=== PATIENT | female | born 1990 | race African-American/Black ===

== ENCOUNTER 2021-06-20 22:47 | Emergency (ER) | payer OTHER ==
[~2021-06-20] VITALS: Ht 165.1 cm; Wt 83.9 kg
[2021-06-20 23:05] VITALS: BP 121/78
--- NOTE | 2021-06-20 23:08 | NUR ---
TO LOBBY A/W BED AMBULATORY
--- NOTE | 2021-06-21 01:12 | NUR ---
PT TAKEN TO BED 11
--- NOTE | 2021-06-21 01:18 | NUR ---
PT MOVED TO ER CHAIR C
[2021-06-21 01:34] LABS: APPEARANCE,URINE CLEAR (CLEAR); BILIRUBIN,URINE NEGATIVE (NEGATIVE); BLOOD, URINE 2+ (NEGATIVE); COLOR,URINE YELLOW (YELLOW); LEUKOCYTE ESTERASE ,URINE NEGATIVE (NEGATIVE); NITRITE, URINE NEGATIVE (NEGATIVE); UGLUCOSE NEGATIVE (NEGATIVE)
--- NOTE | 2021-06-21 01:45 | NUR ---
SEE COMPLETE ASSESSMENT FOR ADDITIONAL INFORMATION
--- NOTE | 2021-06-21 01:45 | NUR ---
PT MOVED TO ER BED 4
[2021-06-21 01:47] LABS: RBC,URINE 0-5 /HPF (0-5)
[2021-06-21] MEDS ORDERED: [UNRECOGNIZED DRUG - CODE] PO (02:24)
--- NOTE | 2021-06-21 02:40 | NUR ---
Patient discharged with v/s stable. Written and verbal after care instructions given and explained. Patient alert, oriented and verbalized understanding of instructions. Ambulatory with steady gait. All questions addressed prior to discharge. ID band removed. Patient advised to follow up with PMD. Rx of NORETHIDRONE given. Patient educated on indication of medication including possible reaction and side effects. Opportunity to ask questions provided and answered.
== END 2021-06-21 02:40 | disposition home or self-care (01) ==
LOC: MED 22:47
DX: N93.8 Other specified abnormal uterine and vaginal bleeding (principal); F17.200 Nicotine dependence, unspecified, uncomplicated; Z79.899 Other long term (current) drug therapy
CPT/HCPCS: 81001; 81025; 87086; 99283